=== PATIENT | female | born 1970 | race Caucasian/White ===

== ENCOUNTER 2017-05-06 10:25 | Day surgery (SDC) | END 2017-05-06 17:28 | disposition home or self-care (01) | DX: K29.70 Gastritis, unspecified, without bleeding (principal); I10 Essential (primary) hypertension; E66.01 Morbid (severe) obesity due to excess calories; Z68.38 Body mass index [BMI] 38.0-38.9, adult; Z88.8 Allergy status to other drugs, medicaments and biological substances ==

== ENCOUNTER 2018-05-17 07:15 | Day surgery (SDC) | END 2018-05-17 12:31 | disposition home or self-care (01) ==

== ENCOUNTER 2018-06-01 19:20 | Emergency (ER) | END 2018-06-01 20:41 | disposition home or self-care (01) ==

== ENCOUNTER 2018-09-23 19:48 | Emergency (ER) | payer OTHER ==
[~2018-09-23] VITALS: Ht 167 cm; Wt 171.0 kg
[~2018-09-23 19:48] MED LIST: ALPR1TAB2 PO
[2018-09-23 19:56] VITALS: Ht 167 cm; Wt 171.0 kg
[2018-09-23 21:19] VITALS: BP 136/93; PULSE 108; RESP 22
--- NOTE | 2018-09-23 21:54 | ERD ---
ER Documentation Chief Complaint Chief Complaint lower back surgery 5 days ago, constipated today & anal pain,too HPI 48-year-old female who is 5 days status post lumbar fusion who presents with constipation. She is taking narcotic pain medication. The patient cannot have a bowel movement and is having significant discomfort. She denies any nausea vomiting, abdominal pain, fevers or chills. ROS All systems reviewed and are negative except as per history of present illness. Medications Home Meds Reported Medications Alprazolam* (Xanax*) 1 Mg Tab, 1 MG PO BID PRN for ANXIETY, TAB 09/13/18 Allergies Allergies: Coded Allergies: Cephalexin Monohydrate (Verified Allergy, Unknown, RASH, 09/23/18) shellfish derived (Unverified Allergy, Unknown, HIVES, 09/23/18) PMhx/Soc History of Surgery: Yes (gastric sleeve, c/s x3, tubal ligation, L4-S1 instrumented fusion 09/13/18) Anesthesia Reaction: No Hx Neurological Disorder: No Hx Respiratory Disorders: No Hx Cardiac Disorders: No Hx Psychiatric Problems: No Hx Miscellaneous Medical Probl: Yes (anxiety/depression, migraines, obesity, spinal stenosis, disc dz L4-L5, L5-) Hx Alcohol Use: No Hx Substance Use: No Hx Tobacco Use: No Smoking Status: Never smoker FmHx Family History: No diabetes Physical Exam Vitals Vital Signs Date Temp Pulse Resp B/P (MAP) Pulse Ox O2 O2 Flow FiO2 Time Delivery Rate 09/23/18 98.2 108 22 136/93 100 Room Air 21:19 (107) 09/23/18 98.2 104 22 137/89 100 19:56 (105) Physical Exam General: Well developed, well nourished, no acute distress Head: Normocephalic, atraumatic. Eyes: EOM intact ENT: Moist mucous membranes Neck: Full ROM Respiratory: No respiratory distress Cardiovascular: Well perfused distally Abdominal: Nondistended : [employer]ice exam reveals significant stool burden in the rectal vault MSK: No edema, no unilateral swelling, 5/5 strength Neurologic: Alert and oriented, moving all extremities, normal speech, steady gait Skin: No rash Psych: Normal mood Results 24 hrs Current Medications Medications Dose Sig/Geoff Start Time Status Last (Trade) Ordered Route PRN Stop Time Admin Dose Reason Admin Glycerin 1 supp ONCE ONCE 09/23/18 (Glycerin MA 22:00 (Adult)) 09/23/18 22:01 Magnesium 300 ml ONCE ONCE 09/23/18 Citrate PO 22:00 (Citroma) 09/23/18 22:01 Procedures/[facility] Fecal disimpaction Verbal consent provided. I performed fecal disimpaction at the bedside using digital rectal examination. A significant stool burden was removed. The patient tolerated procedure well without complication. The patient has clinical signs and symptoms consistent with fecal impaction. Digital rectal examination with manual disimpaction would be appropriate. This procedure was performed and was successful. The patient has complete relief. She was given glycerin suppository magnesium citrate and can be safely discharged. The patient does not have an identifiable emergent medical condition that warrants inpatient hospitalization at this time. The patient is deemed safe for discharge with outpatient follow-up. We discussed follow up with the patient's primary care doctor within 24 to 48 hours as needed. We also discussed return to the emergency room for worsening symptoms or worsening condition. Outpatient referral: None required Discharge Medications: Stool softener Departure Diagnosis: Primary Impression: Fecal impaction Condition: Stable Patient Instructions: Fecal Impaction, Treated Additional Instructions: Call your primary care doctor TOMORROW for an appointment during the next 1 WEEK.Tell the accredited legal secretary that you were referred from this facility.See the doctor sooner or return here if your condition worsens before your appointment time. JAMES TREVINO MD Sep 23, 2018 21:54
[2018-09-23] MEDS ORDERED: GLYCERIN (ADULT) SUPP PR ONE (22:00)
[2018-09-23] MEDS ORDERED: MAGNESIUM CITRATE 300 ML BTL PO ONE (22:00)
== END 2018-09-23 22:30 | disposition home or self-care (01) ==
LOC: E/R 19:48
DX: K56.41 Fecal impaction (principal); E66.9 Obesity, unspecified; Z68.44 Body mass index [BMI] 60.0-69.9, adult
CPT/HCPCS: 99282